=== PATIENT | female | born 1990 | race African-American/Black ===

== ENCOUNTER 2017-02-17 14:08 | Emergency (ER) | payer MEDICAID ==
[~2017-02-17] VITALS: Ht 160 cm; Wt 82.0 kg
[2017-02-17 15:02] VITALS: BP 121/75
== END 2017-02-17 21:22 | disposition left against medical advice (07) ==
LOC: ER 21:21
DX: N28.9 Disorder of kidney and ureter, unspecified (principal); Z53.21 Procedure and treatment not carried out due to patient leaving prior to being seen by health care provider

== ENCOUNTER 2019-04-17 02:42 | Emergency (ER) | payer MEDICAID ==
[~2019-04-17] VITALS: Ht 162.6 cm; Wt 73.0 kg
[2019-04-17] MEDS ORDERED: HYDROCODONE/ACETAMINOPHEN 5/325MG TABLET PO ONE (04:15)
[2019-04-17 05:09] VITALS: BP 131/84
== END 2019-04-17 05:33 | disposition home or self-care (01) ==
LOC: ER 02:42
DX: S90.01XA Contusion of right ankle, initial encounter (principal); F17.200 Nicotine dependence, unspecified, uncomplicated; Z98.890 Other specified postprocedural states; X50.1XXA Overexertion from prolonged static or awkward postures, initial encounter; Y93.01 Activity, walking, marching and hiking; Y92.89 Other specified places as the place of occurrence of the external cause; Y99.8 Other external cause status
CPT/HCPCS: 73610; 73630; 99283

== ENCOUNTER 2019-07-21 22:07 | Emergency (ER) | payer MEDICAID ==
[~2019-07-21] VITALS: Ht 162.6 cm; Wt 81.4 kg
[2019-07-22] MEDS ORDERED: SODIUM CHLORIDE 0.9% 1,000 ML IV ONE (00:51)
[2019-07-22] MEDS ORDERED: KETOROLAC 30MG/ML VIAL IV STA (00:51)
[2019-07-22 01:15] LABS: BASOPHILS % 0.4 % (0.0-2.0); EOSINOPHILS % 0.5 % (0.0-5.0); HEMATOCRIT. 37.3 % (36.0-48.0); HEMOGLOBIN. 12.5 g/dL (12.0-16.0); LYMPHOCYTES % 31.9 % (20.0-50.0); MEAN CORPUSCULAR VOLUME 92.5 fL (81.0-99.0); MEAN PLATELET VOLUME 7.3 fl (7.4-10.4); MONOCYTES % 11.9 % (2.0-8.0); NEUTROPHILS % 55.3 % (40.0-76.0); PLATELET 237 x1000/uL (130-400); RED BLOOD CELL COUNT 4.03 mill/uL (4.2-5.4); RED CELL DISTRIBUTION WIDTH 12.9 % (11.6-14.6)
[2019-07-22 01:18] LABS: CHLORIDE 110 mEq/L (98-107)
[2019-07-22 03:15] LABS: CLARITY URINE CLEAR (CLEAR); COLOR URINE YELLOW (YELLOW); KETONES URINE NEGATIVE (NEGATIVE); LEUKOCYTE ESTERASE URINE NEGATIVE (NEGATIVE); NITRITE URINE NEGATIVE (NEGATIVE); OCCULT BLOOD URINE NEGATIVE (NEGATIVE); PROTEIN URINE NEGATIVE (NEGATIVE); SPECIFIC GRAVITY URINE 1.027 (1.005-1.030); UROBILINOGEN URINE 0.2 E.U./dL (0.2-1.0)
[2019-07-22 05:12] VITALS: BP 128/75
== END 2019-07-22 05:14 | disposition home or self-care (01) ==
LOC: ER 22:24
DX: R10.84 Generalized abdominal pain (principal); R19.7 Diarrhea, unspecified; F17.200 Nicotine dependence, unspecified, uncomplicated; Z98.890 Other specified postprocedural states
CPT/HCPCS: 36415; 80053; 81003; 81025; 83690; 85025; 96361; 96374; 99283; J1885; J7030

== ENCOUNTER 2023-06-07 11:03 | Emergency (ER) | payer MEDICAID ==
[~2023-06-07] VITALS: Ht 160 cm; Wt 81.0 kg
[2023-06-07 11:09] VITALS: BP 141/91; PULSE 67; RESP 18; TEMP 98.1; O2SAT 100
[2023-06-07 11:52] LABS: BASOPHILS % 0.3 % (0.0-2.0); EOSINOPHILS % 0.6 % (0.0-5.0); HEMATOCRIT. 38.3 % (36.0-48.0); LYMPHOCYTES % 31.1 % (20.0-50.0); MEAN CORPUSCULAR HGB CONC 34.1 g/dL (31.0-37.0); MEAN PLATELET VOLUME 6.9 fl (7.4-10.4); MONOCYTES % 11.1 % (2.0-8.0); NEUTROPHILS % 56.9 % (40.0-76.0); PLATELET 303 x1000/uL (130-400); RED BLOOD CELL COUNT 4.21 mill/uL (4.2-5.4); RED CELL DISTRIBUTION WIDTH 13.2 % (11.6-14.6); WHITE BLOOD COUNT 6.3 x1000/uL (4.5-11.0)
[2023-06-07 12:13] LABS: ALBUMIN 3.6 g/dL (3.4-5.0); CALCIUM 8.7 mg/dL (8.5-10.1); CARBON DIOXIDE 26 mEq/L (21-32); CHLORIDE 111 mEq/L (98-107); GLUCOSE 91 mg/dL (70-105); INDEX HEMOLYSI 1 (1-3); INDEX ICTERIC 1 (1-4); INDEX LIPEMIC 1 (1-3); POTASSIUM 3.7 mEq/L (3.5-5.1); SODIUM 138 mEq/L (136-145); UREA NITROGEN BLOOD 7 mg/dL (7-21)
[2023-06-07 12:15] LABS: HCG SCREEN NEGATIVE
[2023-06-07 12:19] LABS: ALANINE AMINOTRANSFERASE 21 IU/L (13-61); ASPARTATE AMINOTRANSFERASE 16 IU/L (15-37); BILIRUBIN TOTAL 0.3 mg/dL (0.1-1.0); CREATININE 0.8 mg/dL (0.6-1.3); PROTEIN TOTAL 7.7 g/dL (6.0-8.3)
[2023-06-07] MEDS ORDERED: KETOROLAC 30MG/ML VIAL IM ONE (14:15)
== END 2023-06-07 14:27 | disposition left against medical advice (07) ==
LOC: ER 11:03
DX: R19.7 Diarrhea, unspecified (principal)
CPT/HCPCS: 36415; 80053; 84703; 85025; 99283

== ENCOUNTER 2023-08-16 08:32 | Emergency (ER) | payer MEDICAID ==
[~2023-08-16] VITALS: Ht 167.6 cm; Wt 91.0 kg
[2023-08-16 08:39] VITALS: O2SAT 100
[2023-08-16 09:20] LABS: CLARITY URINE TURBID (CLEAR); COLOR URINE DARK YELLOW (YELLOW); GLUCOSE URINE NEGATIVE (NEGATIVE); KETONES URINE TRACE (NEGATIVE); LEUKOCYTE ESTERASE URINE 3+ (NEGATIVE); NITRITE URINE POSITIVE (NEGATIVE); OCCULT BLOOD URINE 3+ (NEGATIVE); PH URINE 5.5 (4.5-8.0); PROTEIN URINE 4+ (NEGATIVE); SPECIFIC GRAVITY URINE 1.028 (1.005-1.030)
[2023-08-16 09:35] LABS: SQUAMOUS EPITHELIAL CELL URINE 1+ /lpf (RARE/1+)
[2023-08-16 09:36] LABS: BACTERIA URINE 2+; WBC URINE 50-100 /hpf (0-2)
[2023-08-16] MEDS ORDERED: CEPH500C2 MT (09:40)
[2023-08-16] MEDS ORDERED: PYR200 MT (09:40)
[2023-08-16 09:56] VITALS: BP 132/78; PULSE 77; RESP 18; TEMP 97.7
== END 2023-08-16 09:58 | disposition home or self-care (01) ==
LOC: ER 09:04
DX: N30.90 Cystitis, unspecified without hematuria (principal); Z98.890 Other specified postprocedural states
CPT/HCPCS: 81003; 81025; 87077; 87186; 99283

== ENCOUNTER 2024-03-21 15:59 | Emergency (ER) | payer MEDICAID ==
[~2024-03-21] VITALS: Ht 160 cm; Wt 88.0 kg
[~2024-03-21 15:59] MED LIST: CEPH500C2 MT; PYR200 MT
[2024-03-21 16:06] VITALS: TEMP 98; O2SAT 100
[2024-03-21] MEDS ORDERED: AZIT250T12 MT (18:17)
[2024-03-21 20:33] VITALS: BP 132/88; PULSE 78; RESP 18
== END 2024-03-21 20:34 | disposition home or self-care (01) ==
LOC: ER 15:59
DX: J18.8 Other pneumonia, unspecified organism (principal); Z98.890 Other specified postprocedural states
CPT/HCPCS: 71045; 93005; 99283

== ENCOUNTER 2024-07-23 15:01 | Emergency (ER) | payer MEDICAID ==
[~2024-07-23] VITALS: Ht 160 cm; Wt 87.0 kg
[~2024-07-23 15:01] MED LIST changes: +AZIT250T12 MT
[2024-07-23 15:20] VITALS: O2SAT 100
[2024-07-23 18:37] LABS: BASOPHILS % 0.3 % (0.0-2.0); EOSINOPHILS % 0.2 % (0.0-5.0); HEMATOCRIT. 42.7 % (36.0-48.0); HEMOGLOBIN. 13.9 g/dL (12.0-16.0); LYMPHOCYTES % 27.8 % (20.0-50.0); MEAN CORPUSCULAR HEMOGLOBIN 30.6 pg (28.0-32.0); MEAN CORPUSCULAR HGB CONC 32.5 g/dL (31.0-37.0); MEAN CORPUSCULAR VOLUME 94.3 fL (81.0-99.0); MEAN PLATELET VOLUME 7.2 fl (7.4-10.4); NEUTROPHILS % 65.7 % (40.0-76.0); PLATELET 297 x1000/uL (130-400); RED BLOOD CELL COUNT 4.53 mill/uL (4.2-5.4); RED CELL DISTRIBUTION WIDTH 12.4 % (11.6-14.6); WHITE BLOOD COUNT 7.8 x1000/uL (4.5-11.0)
[2024-07-23 18:43] LABS: CHLORIDE 106 mEq/L (98-107); POTASSIUM 3.7 mEq/L (3.5-5.1); SODIUM 137 mEq/L (136-145)
[2024-07-23 18:44] LABS: CARBON DIOXIDE 25 mEq/L (21-32)
[2024-07-23 18:45] LABS: CALCIUM 9.9 mg/dL (8.7-10.4)
[2024-07-23 18:49] LABS: CREATININE 0.9 mg/dL (0.6-1.0); GLUCOSE 79 mg/dL (70-105); UREA NITROGEN BLOOD 12 mg/dL (9-23)
[2024-07-23 18:51] LABS: TROPONIN I HIGH SENSITIVITY < 4 ng/L (3.0-34)
[2024-07-23] MEDS ORDERED: KETOROLAC 30MG/ML VIAL IM ONE (19:00)
[2024-07-23 19:31] LABS: HCG SCREEN NEGATIVE
[2024-07-23 20:29] VITALS: BP 157/97; PULSE 73; RESP 18; TEMP 36.66960; O2SAT 98
== END 2024-07-23 20:35 | disposition home or self-care (01) ==
LOC: ER 15:01 → EDBEDREQ 17:38 → ER 20:35
DX: R07.89 Other chest pain (principal); R06.02 Shortness of breath; Z98.890 Other specified postprocedural states
CPT/HCPCS: 80048; 84703; 83880; 85025; 84484; 36415; 71045; 99284; J1885; Z7610

== ENCOUNTER 2024-09-03 07:52 | Emergency (ER) | payer MEDICAID ==
[~2024-09-03] VITALS: Ht 160 cm; Wt 88.0 kg
[2024-09-03 07:54] VITALS: O2SAT 100
[2024-09-03 09:15] LABS: HEMATOCRIT 40.9 % (36.0-48.0); HEMOGLOBIN 13.6 g/dL (12.0-16.0); MEAN CORPUSCULAR HEMOGLOBIN 31.5 pg (28.0-32.0); MEAN CORPUSCULAR HGB CONC 33.3 g/dL (31.0-37.0); MEAN CORPUSCULAR VOLUME 94.8 fL (81.0-99.0); PLATELET 269 x1000/uL (130-400); RED BLOOD CELL COUNT 4.31 mill/uL (4.2-5.4); RED CELL DISTRIBUTION WIDTH 12.6 % (11.6-14.6); WHITE BLOOD COUNT 5.7 x1000/uL (4.5-11.0)
[2024-09-03 09:22] LABS: CHLORIDE 109 mEq/L (98-107); POTASSIUM 3.9 mEq/L (3.5-5.1); SODIUM 140 mEq/L (136-145)
[2024-09-03 09:23] LABS: CALCIUM 9.7 mg/dL (8.7-10.4); CARBON DIOXIDE 27 mEq/L (21-32)
[2024-09-03 09:28] LABS: CREATININE 0.8 mg/dL (0.6-1.0); GLUCOSE 84 mg/dL (70-105); UREA NITROGEN BLOOD 8 mg/dL (9-23)
[2024-09-03 09:30] LABS: ALANINE AMINOTRANSFERASE 10 IU/L (10-49); ALBUMIN 4.6 g/dL (3.2-4.8); ASPARTATE AMINOTRANSFERASE 17 IU/L (<34); BILIRUBIN DIRECT 0.2 mg/dL (<=3.0)
[2024-09-03 09:31] LABS: BILIRUBIN TOTAL 0.6 mg/dL (0.1-1.0); PROTEIN TOTAL 7.6 g/dL (6.0-8.3)
[2024-09-03 09:50] LABS: CLARITY URINE CLOUDY (CLEAR); COLOR URINE DARK YELLOW (YELLOW); GLUCOSE URINE NEGATIVE (NEGATIVE); KETONES URINE TRACE (NEGATIVE); LEUKOCYTE ESTERASE URINE 1+ (NEGATIVE); NITRITE URINE NEGATIVE (NEGATIVE); OCCULT BLOOD URINE NEGATIVE (NEGATIVE); PROTEIN URINE NEGATIVE (NEGATIVE); SPECIFIC GRAVITY URINE 1.025 (1.005-1.030); UROBILINOGEN URINE 0.2 E.U./dL (0.2-1.0)
[2024-09-03 11:04] LABS: BACTERIA URINE 1+; RBC URINE 0-2 /hpf (0-2); SQUAMOUS EPITHELIAL CELL URINE 3+ /lpf (RARE/1+); YEAST URINE NONE SEEN
[2024-09-03 13:47] LABS: HCG SCREEN NEGATIVE
[2024-09-03] MEDS ORDERED: NITR-87 MT (15:21)
[2024-09-03] MEDS ORDERED: NAPR-681 MT (15:21)
[2024-09-03] MEDS: KETOROLAC 15MG/ML VIAL IM ONE (16:57)
[2024-09-03 17:00] VITALS: BP 123/64; PULSE 62; RESP 16; TEMP 36.83628; O2SAT 100
== END 2024-09-03 17:00 | disposition home or self-care (01) ==
LOC: ER 08:01
DX: R10.9 Unspecified abdominal pain (principal); Z98.890 Other specified postprocedural states
CPT/HCPCS: 99285; 74176; 80076; 80048; 81003; 81025; 84703; 83690; 85027; 36415; 96372; J1885